=== PATIENT | female | born 1995 | race Caucasian/White ===

== ENCOUNTER 2018-09-18 09:29 | Emergency (ER) | payer BC ==
[~2018-09-18] VITALS: Ht 162.6 cm; Wt 56.8 kg
[2018-09-18] MEDS ORDERED: METR250 PO (09:52)
[2018-09-18 12:55] VITALS: BP 128/70
== END 2018-09-18 12:57 | disposition home or self-care (01) ==
LOC: EMS 09:30
DX: S09.90XA Unspecified injury of head, initial encounter (principal); Z88.0 Allergy status to penicillin; V43.52XA Car driver injured in collision with other type car in traffic accident, initial encounter; Y93.89 Activity, other specified; Y92.481 Parking lot as the place of occurrence of the external cause; Y99.8 Other external cause status
CPT/HCPCS: 70450; 72125